=== PATIENT | female | born 1980 | race Caucasian/White ===

== ENCOUNTER 2016-05-28 10:44 | Emergency (ER) | payer OTHER ==
--- NOTE | 2016-05-28 11:10 | CPEKG ---
Heart Rate: 86 RR Interval: 698 P-R Interval: 144 QRSD Interval: 92 QT Interval: 384 QTC Interval: 460 P [place]: 77 QRS [place]: 51 T Wave [place]: -26 EKG Severity - NORMAL ECG - EKG Impression: SINUS RHYTHM Electronically Signed By: Eric Cifuentes 29-May-2016 09:09:11
[2016-05-28 11:54] LABS: % IMMATURE GRANULYOCYTES 0.3 % (0.0-1.1); ABSOLUTE IMMATURE GRANULOCYTES 0.02 10^3/uL (0.00-0.10); ADD DIFF? NO; ADD MORPH? NO; ADD SCAN? NO; ATYPICAL LYMPHOCYTE FLAG 40 (0-99); FRAGMENT RBC FLAG 0 (0-99); HEMATOCRIT 38.7 % (38.0-47.0); HEMOGLOBIN 13.8 g/dL (12.6-16.3); LEFT SHIFT FLG 0 (0-99); LIPEMIA HEMOLYSIS FLAG 90 (0-99); MEAN CELL HEMOGLOBIN 29.8 pg (27.9-34.1); MEAN CELL HEMOGLOBIN CONCENTR. 35.7 g/dL (32.4-36.7); MEAN CELL VOLUME 83.6 fL (81.5-99.8); MEAN PLATELET VOLUME 10.6 fL (8.7-11.7); PLATELET CLUMPS FLAG 0 (0-99); PLATELET COUNT 254 10^3/uL (150-400); RED BLOOD CELL COUNT 4.63 10^6/uL (4.18-5.33); RED CELL DISTRIBUTION WIDTH 11.9 % (11.5-15.2)
[2016-05-28 12:02] LABS: ANION GAP 11 mEq/L (8-16); CALCIUM 9.2 mg/dL (8.5-10.4); CARBON DIOXIDE 30 mEq/l (22-31); CHLORIDE 104 mEq/L (97-110); CREATININE 0.6 mg/dL (0.6-1.0); GLOMERULAR FILTRATION RATE > 60; GLUCOSE 91 mg/dL (70-100); POTASSIUM 3.2 mEq/L (3.5-5.2); SODIUM 145 mEq/L (134-144)
--- NOTE | 2016-05-28 12:15 | EDPHY ---
H & P Stated Complaint: Heart racing;vertigo Time Seen by Provider: 05/28/16 12:10 - Personal History LMP (Females 10-55): 15-21 Days Ago Current Tetanus Diphtheria and Acellular Pertussis (TDAP): Yes - Medical/Surgical History Other PMH: DVT 2009 - Social History Smoking Status: Never smoked Constitutional: Initial Vital Signs Temperature (C) 36.6 C 05/28/16 10:50 Heart Rate 83 05/28/16 10:50 Respiratory Rate 18 05/28/16 10:50 Blood Pressure 123/75 H 05/28/16 10:50 O2 Sat (%) 98 05/28/16 10:50 O2 Delivery Mode Room Air Allergies/Adverse Reactions: dalteparin,porcine [Dalteparin,Porcine] Allergy (Severe, Verified 05/28/16 10:54 ) SEVERE HIVES enoxaparin [Enoxaparin] Allergy (Severe, Verified 05/28/16 10:54) Hives Shellfish *RETIRED-02/03/12 [Shellfish] Allergy (Intermediate, Verified 10:54) Swelling/neck,face,throat heparin (porcine) [Heparin,Porcine] Allergy (Unknown, Verified 05/28/16 10:54) UNK Home Medications: Medication Instructions Recorded NK [No Known Home Meds] 05/28/16 Medical Decision Making ED Course/Re-evaluation: CHIEF COMPLAINT: Lightheadedness and dizziness HISTORY OF PRESENT ILLNESS: 36-year-old female who had a 15 or 20 minutes episode of vertiginous type symptoms while at work. She got up and went to get a glass of water and felt like she was walking on a boat and felt quite dizzy. She felt not syncopal but just lightheaded. She denies having symptoms like this in the past. She denies any recent trauma. She denies any infection. She denies any fevers chills nausea vomiting. She denies any symptoms now whatsoever she states that everything resolved after 20 to 30 minutes REVIEW OF SYSTEMS: A 10 point review of systems was performed and is negative with the exception of the elements mentioned in the history of present illness. PHYSICAL EXAM: HR, BP, O2 Sat, RR. Temp noted General Appearance: Alert, well hydrated, appropriate, and non-toxic appearing. Head: Atraumatic without scalp tenderness or obvious injury Eyes: Pupils equal, round, reactive to light and accommodation, EOMI, no trauma , no injection. Ears: Clear bilaterally, no perforation, normal landmarks Nose: Atraumatic, no rhinorrhea, clear. Throat: There is no erythema or exudates, no lesions, normal tonsils, mucus membranes moist. Neck: Supple, 2+ carotid upstroke, nontender, no lymphadenopathy. Respiratory: No retractions, no distress, no wheezes, and no accessory muscle use. Lungs are clear to auscultation bilaterally. Cardiovascular: Regular rate and rhythm, no murmurs, rubs, or gallops. Bilateral carotid, radial, dorsalis pedis, and posterior tibial pulses intact. Good capillary refill all extremities. Gastrointestinal: Abdomen is soft, nontender, non-distended, no masses, no rebound, no guarding, no peritoneal signs. Musculoskeletal: Normal active ROM of all extremities, atraumatic. Neurological: Alert, appropriate, and interactive. The patient has normal DTRs and non-focal cranial nerves, motor, sensory, and cerebellar exam. Skin: No rashes, good turgor, no nodules on palpation. Past medical history: DVT provoked with 1st none on 2nd Past surgical history: None Family history: Noncontributory Social history: Single, employed, does not abuse tobacco drugs or alcohol, 2 children DIAGNOSTICS/PROCEDURES/CRITICAL CARE TIME: The 12 lead EKG was interpreted by myself. See hard copy and/or "tracemaster" electronic copy for interpretation. The 1st EKG shows some mild diffuse ST depression in the inferior and lateral leads. The 2nd EKG resolved most of the ST depression in the lateral leads some maybe in the inferior leads. DIFFERENTIAL DIAGNOSIS: The differential diagnosis for the patient's dizziness included but was not limited to peripheral and central causes of vertigo, orthostatic causes including dehydration, cardiogenic and neurogenic causes, and blood loss. MEDICAL DECISION MAKING: I believe this patient had a brief episode of either mild hypotension which she states she does get the were relieved when she stands up quickly. She does have a very slightly abnormal EKG but it is not consistent with anything she is presenting with and she has no symptoms now. The symptoms only lasted 20-30 minutes and I do not have an old EKG and my guess is this is all normal for her. However, for thoroughness I will set her up with Dr. Christiano Mcpherson for provocative testing in the next 1-2 days. Her laboratory studies are essentially unremarkable except for a borderline low potassium she will use some electrolyte solution. Patient is comfortable going home at this point she will return if the symptoms return. - Data Points Laboratory Results: Laboratory Results 05/28/16 11:21 05/28/16 11:21 05/28/16 11:21 WBC 7.18 10^3/uL (3.80-9.50) RBC 4.63 10^6/uL (4.18-5.33) Hgb 13.8 g/dL (12.6-16.3) Hct 38.7 % (38.0-47.0) MCV 83.6 fL (81.5-99.8) MCH 29.8 pg (27.9-34.1) MCHC 35.7 g/dL (32.4-36.7) RDW 11.9 % (11.5-15.2) Plt Count 254 10^3/uL (150-400) MPV 10.6 fL (8.7-11.7) Neut % (Auto) 70.1 % (39.3-74.2) Lymph % (Auto) 20.6 % (15.0-45.0) [place] % (Auto) 7.1 % (4.5-13.0) Eos % (Auto) 1.5 % (0.6-7.6) Baso % (Auto) 0.4 % (0.3-1.7) Nucleat RBC Rel Count 0.0 % (0.0-0.2) Absolute Neuts (auto) 5.03 10^3/uL (1.70-6.50) Absolute Lymphs (auto) 1.48 10^3/uL (1.00-3.00) Absolute Monos (auto) 0.51 10^3/uL (0.30-0.80) Absolute Eos (auto) 0.11 10^3/uL (0.03-0.40) Absolute Basos (auto) 0.03 10^3/uL (0.02-0.10) Absolute Nucleated RBC 0.00 10^3/uL (0-0.01) Immature Gran % 0.3 % (0.0-1.1) Immature Gran # 0.02 10^3/uL (0.00-0.10) Sodium 145 H mEq/L (134-144) Potassium 3.2 L mEq/L (3.5-5.2) Chloride 104 mEq/L (97-110) Carbon Dioxide 30 mEq/l (22-31) Anion Gap 11 mEq/L (8-16) BUN 10 mg/dL (7-23) Creatinine 0.6 mg/dL (0.6-1.0) Estimated GFR > 60 Glucose 91 mg/dL (70-100) Calcium 9.2 mg/dL (8.5-10.4) Departure - Departure Disposition: Home, Routine, Self-Care Clinical Impression: Dizziness Condition: Good Instructions: Dizziness (ED), Lightheadedness (ED) Additional Instructions: Called Dr. Mcpherson office for appointment in the next 1-2 days they have your name Referrals: Yasmin Guo MD [Primary Care Provider] - As per Instructions Christiano Mcpherson MD [Medical Doctor] - As per Instructions
--- NOTE | 2016-05-28 12:35 | CPEKG ---
Heart Rate: 80 RR Interval: 750 P-R Interval: 152 QRSD Interval: 88 QT Interval: 404 QTC Interval: 466 P [place]: 76 QRS [place]: 45 T Wave [place]: -22 EKG Severity - BORDERLINE ECG - EKG Impression: SINUS RHYTHM EKG Impression: BORDERLINE T ABNORMALITIES, INFERIOR LEADS Electronically Signed By: Alexandru Banerjee 28-May-2016 20:16:23
[2016-05-28 12:47] VITALS: RESP 16
[2016-05-28 12:48] VITALS: BP 121/72; PULSE 78; TEMP 97.2; O2SAT 98
== END 2016-05-28 12:48 | disposition home or self-care (01) ==
DX: R42 Dizziness and giddiness (principal)

== ENCOUNTER 2016-07-01 17:29 | Emergency (ER) | payer OTHER ==
--- NOTE | 2016-07-01 17:38 | EDPHY ---
H & P Stated Complaint: "Feels like my heart is racing",waiting for Holter results Time Seen by Provider: 07/01/16 17:38 HPI/ROS: CHIEF COMPLAINT: Ongoing palpitations HISTORY OF PRESENT ILLNESS: The patient presents to the ED with an episode of ongoing palpitations. The patient reportedly developed the symptoms while at dance class with her daughter. These have been in episodic issue for the patient over the past several months. The patient does admit to being under a fair amount of stress. She is currently going through a divorce and currently under a fair demands at work. The patient has been seen in the ED for this in the past and had a negative TSH an unremarkable EKG. The patient was referred to Cardiology where she has undergone a recent Holter monitor without the results yet reported to the patient. She also reportedly had a negative echocardiogram. The patient is scheduled to undergo a stress echo in 2 weeks time. The patient denies any pleuritic chest pain or shortness of breath. The patient tends to sense her palpitations in her epigastric area. REVIEW OF SYSTEMS: A comprehensive 10 point review of systems is otherwise negative aside from elements mentioned in the history of present illness. Source: Patient Exam Limitations: No limitations - Personal History LMP (Females 10-55): 8-14 Days Ago Current Tetanus Diphtheria and Acellular Pertussis (TDAP): Yes - Medical/Surgical History Other PMH: DVT 2009 - Social History Smoking Status: Never smoked - Physical Exam Exam: General Appearance: Alert, no distress Eyes: Pupils equal and round no pallor or injection ENT, Mouth: Mucous membranes moist Respiratory: There are no retractions, lungs are clear to auscultation Cardiovascular: Regular rate and rhythm Gastrointestinal: No tenderness to palpation Neurological: A&O, normal motor function, normal sensory exam, normal cranial nerves Skin: Warm and dry, no rashes Musculoskeletal: Neck is supple nontender Extremities: symmetrical, full range of motion Psychiatric: Patient is oriented X 3, there is no agitation Constitutional: Initial Vital Signs Heart Rate 75 07/01/16 17:31 Respiratory Rate 18 07/01/16 17:31 Blood Pressure 127/73 H 07/01/16 17:31 O2 Sat (%) 99 07/01/16 17:31 O2 Delivery Mode Room Air Allergies/Adverse Reactions: dalteparin,porcine [Dalteparin,Porcine] Allergy (Severe, Verified 07/01/16 17:31 ) SEVERE HIVES enoxaparin [Enoxaparin] Allergy (Severe, Verified 07/01/16 17:31) Hives Shellfish *RETIRED-02/03/12 [Shellfish] Allergy (Intermediate, Verified 17:31) Swelling/neck,face,throat heparin (porcine) [Heparin,Porcine] Allergy (Unknown, Verified 07/01/16 17:31) UNK Home Medications: Medication Instructions Recorded NK [No Known Home Meds] 05/28/16 Medical Decision Making - Diagnostics EKG Interpretation: EKG: Complete interpretation has been separately recorded in the [facility] archive. Summary impression: Sinus rhythm, rate 63, no arrhythmia, no ischemic changes Imaging: EKG: Complete interpretation has been separately recorded in the [facility] archive. Summary impression: Sinus rhythm ED Course/Re-evaluation: The patient presents to the ED with complaints of palpitations. The patient was placed on a tonger. While I interviewed the patient she continued to have intermittent palpitations with no ectopy noted on her monitor. At this point time I feel the etiology of her symptoms are certainly likely due to stress. There is no evidence of an arrhythmia explaining the episodes she is experiencing. The patient will be discharged home and follow up with Cardiology as scheduled. The patient is comfortable with this plan and disposition. I have asked the patient to return to the ED for heart rate persistently over 120, severe chest pain, difficulty breathing or other concerns. Differential Diagnosis: Differential diagnosis considered includes arrhythmia, metabolic abnormality, anxiety reaction Departure - Departure Disposition: Home, Routine, Self-Care Clinical Impression: Palpitations Condition: Good Instructions: Palpitations (ED) Additional Instructions: 1. Please follow up as scheduled with Cardiology. 2. There is no evidence of an obvious arrhythmia today. 3. I recommend returning to the emergency department for severe chest pain, shortness of breath, heart rate persistently over 110 at rest or other concerns. Referrals: Yasmin Guo MD [Primary Care Provider] - As per Instructions
--- NOTE | 2016-07-01 18:08 | CPEKG ---
Heart Rate: 63 RR Interval: 952 P-R Interval: 140 QRSD Interval: 86 QT Interval: 420 QTC Interval: 430 P [place]: 59 QRS [place]: 32 T Wave [place]: 34 EKG Severity - NORMAL ECG - EKG Impression: SINUS RHYTHM Electronically Signed By: Thomas Snider 01-Jul-2016 20:41:53
[2016-07-01 18:26] VITALS: BP 110/73; PULSE 69; RESP 16; TEMP 98.4; O2SAT 97
== END 2016-07-01 18:23 | disposition home or self-care (01) ==
DX: R00.2 Palpitations (principal)

== ENCOUNTER 2016-10-05 19:22 | Emergency (ER) | payer OTHER ==
[2016-10-05 19:30] VITALS: BP 121/74; PULSE 70; RESP 16; TEMP 98.1; O2SAT 97
[2016-10-05] MEDS ORDERED: AMOXICILLIN/CLAVULANATE POT 875/125 MG TAB PO ONE (19:59)
[2016-10-05] MEDS ORDERED: TDAP ADULT 0.5 ML INJ (BOOSTRIX) IM ONE (19:59)
--- NOTE | 2016-10-05 19:59 | EDPHY ---
H & P Stated Complaint: pt says she was bitten by a dog on L hand HPI/ROS: CHIEF COMPLAINT: Dog bite HISTORY OF PRESENT ILLNESS: Patient was at her home with her dog when an acquaintance brought their dog over. The dog's began to fight she tried to break it up. She was bit in the left hand by the other person dog. This is on the volar aspect, between the middle and ring finger in the web space. Minimally painful at rest. She has no bony tenderness. No bruising. No bleeding. No numbness or tingling. No changes in temperature in the hand. No injury to the wrist. Tetanus is out of date. The dog is reportedly up-to-date on his vaccinations and is in the custody of a known acquaintance. No other associated complaints or modifying factors. She is right-hand dominant REVIEW OF SYSTEMS: Ten systems reviewed and are negative unless otherwise noted in the HPI PERTINENT MEDICAL HISTORY: Denies EXAMINATION General Appearance: Alert, no distress Cardiovascular: Regular rate and rhythm. Symmetric radial pulses are 2+. Neurological: A&O, nonfocal, normal gait. Strength symmetric in both limbs. Sensory intact including interossei and 2 point sensation. Skin: Warm and dry, no rash. Small puncture wound on the left hand, volar, between the 3rd and 4th finger web space. No exposure of the tendinous structures. No exposure of the vasculature. No foreign body. Neurovascular intact distal to the injury. Extremities: Mild tenderness in the area of the puncture wound. No bony tenderness. No crepitus. Range of motion is fully intact without deficit. Psychiatric: Mood and affect normal MDM: 7:59 p.m. Dog bite to the left hand. She is neurovascular intact. There is no evidence of vascular injury. No bony tenderness. She has declined an x-ray of the hand. Tetanus will be updated here. First dose of Augmentin will be administered. We will irrigate the wound copiously. No indication for wound closure as this is less than a cm, in the web space, and well approximated without intervention. She will be discharged home with Augmentin for 10 days, wound care instructions. She will be instructed to follow up with primary care physician in 2 days for wound check and to return here for worsening symptoms as discussed. 8:20 p.m. Wound has been irrigated. She remains neurovascular intact. They informed me that they will proceed to the owners home with the dog to verify the vaccination status. [employer] was contacted here per protocol for dog bites. I stressed the importance of re-evaluation of her wound 2 days to ensure that she has not developed infection. We discussed strict return to emergency department precautions for worsening pain, redness, swelling, purulence, difficulty extending or flexing the fingers. She voiced her understanding of this. She is discharged home in stable condition. SUPERVISION: This patient was independently evaluated without direct examination by the attending physician. Case was discussed with attending physician. Source: Patient Exam Limitations: No limitations - Personal History Current Tetanus Diphtheria and Acellular Pertussis (TDAP): Unsure - Medical/Surgical History Hx Asthma: No Hx Chronic Respiratory Disease: No Hx Diabetes: No Hx Cardiac Disease: No Hx Renal Disease: No Hx Cirrhosis: No Hx Alcoholism: No Hx HIV/AIDS: No Hx Splenectomy or Spleen Trauma: No Other PMH: DVT 2009 - Social History Smoking Status: Never smoked Constitutional: Initial Vital Signs Temperature (C) 98.1 F 10/05/16 19:28 Heart Rate 70 10/05/16 19:28 Respiratory Rate 16 10/05/16 19:28 Blood Pressure 121/74 H 10/05/16 19:28 O2 Sat (%) 97 10/05/16 19:28 O2 Delivery Mode Room Air Allergies/Adverse Reactions: dalteparin,porcine [Dalteparin,Porcine] Allergy (Severe, Verified 07/01/16 17:31 ) SEVERE HIVES enoxaparin [Enoxaparin] Allergy (Severe, Verified 07/01/16 17:31) Hives heparin (porcine) [Heparin,Porcine] Allergy (Unknown, Verified 07/01/16 17:31) UNK shellfish derived Allergy (Verified 10/05/16 19:31) Home Medications: Medication Instructions Recorded Amoxicillin/Clavulanate Pot 875 mg PO BID #20 tab 10/05/16 [Augmentin 875 MG TAB (*)] Medical Decision Making - Data Points Medications Given: Discontinued Medications Amoxicillin/Clavulanate Potassium (Augmentin 875mg) 875 mg PO EDNOW ONE PRN Reason: Protocol Stop: 10/05/16 20:00 Last Admin: 10/05/16 20:18 Dose: 875 mg Diphtheria/Tetanus/Acell Pertussis (Boostrix) 0.5 ml IM .ONCE ONE Stop: 10/05/16 20:00 Last Admin: 10/05/16 20:25 Dose: 0.5 ml Departure - Departure Disposition: Home, Routine, Self-Care Clinical Impression: Dog bite of left hand Qualifiers: Encounter type: initial encounter Qualified Code(s): S61.452A - Open bite of left hand, initial encounter Condition: Good Instructions: Amoxicillin/Clavulanate Potassium (By mouth), Animal Bite (ED) Additional Instructions: Daily wound care as discussed. Augmentin twice daily for 10 days. Follow up with primary care physician for wound check in 2 days. Return here for worsening symptoms as discussed. Need to confirm the dog's vaccination status to determine whether not to need the rabies post exposure prophylaxis. This is to be done as soon as possible. Referrals: Yasmin Guo MD [Primary Care Provider] - As per Instructions Prescriptions: Amoxicillin/Clavulanate Pot [Augmentin 875 MG TAB (*)] 875 mg PO BID #20 tab
== END 2016-10-05 20:26 | disposition home or self-care (01) ==
PROC: 3E0234Z Introduction of Serum, Toxoid and Vaccine into Muscle, Percutaneous Approach (ICD-10-PCS; principal; 2016-10-05)
DX: S61.452A Open bite of left hand, initial encounter (principal); Z23 Encounter for immunization; W54.0XXA Bitten by dog, initial encounter; Y92.009 Unspecified place in unspecified non-institutional (private) residence as the place of occurrence of the external cause

== ENCOUNTER → 2018-02-04 | Outpatient (CLI) | payer OTHER | LOC: FIMAGING 09:46 | PROVIDERS: ATTEND Obstetrics & Gynecology | DX: N64.4 Mastodynia (principal); R92.2 Inconclusive mammogram ==